=== PATIENT | male | born 1990 | race Two or more races ===

== ENCOUNTER → 2018-03-23 07:01 | Outpatient (CLI) | payer OTHER | END | disposition home or self-care (01) | LOC: D.MRI 07:00 | DX: S83.512A Sprain of anterior cruciate ligament of left knee, initial encounter (principal); X58.XXXA Exposure to other specified factors, initial encounter ==

== ENCOUNTER 2018-04-21 06:16 | Day surgery (SDC) | payer OTHER ==
[~2018-04-21] VITALS: Ht 175.3 cm; Wt 99.8 kg
[2018-04-21 07:47] VITALS: BP 128/89; Ht 175.3 cm; Wt 99.8 kg
[2018-04-21] MEDS ORDERED: TORADOL10 MG PO (12:05)
[2018-04-21] MEDS ORDERED: PERCOCET 7.5/321 TAB PO (12:05)
--- NOTE | 2018-04-21 13:10 | NUR ---
1250-RECD TO ROOM, ALERT. IV PATENT. DENIES PAIN/NAUSEA. IMOBILIZER TO LEFT KNEE, SET AT 0 ON BOTH SIDES. 1300-FULL LIQUIDS SERVED.
--- NOTE | 2018-04-21 14:15 | NUR ---
PT DISCHARGE INSTRUCTIONS REVIWED AT THIS TIME, PT VERBALIZES UNDERSTANDING. PT IV REMOVED AT THIS TIME, INTACT, NO REDNESS OR SWELLING NOTED. PT AWAITING CRUTCHCES FROM [facility].
--- NOTE | 2018-04-21 14:32 | NUR ---
PT REQUESTING TO WRITER CRUTCHES AT [facility]. [facility] CALLED AND CONFIRMED THAT THEY WILL HAVE CRUTCHES READY FOR PT. PT BEING DISCHARGED FROM UNIT AT THIS TIME VIA WC.
--- NOTE | 2018-04-21 15:51 | OP ---
PATIENT NAME: MUSHTAQ GOMEZ MEDICAL RECORD: [id number] :90 LOCATION:[facility] ADMISSION DATE: SURGEON: JAKE ANGULO DO DATE OF OPERATION: 04/21/2018 PROCEDURE PERFORMED: Left ACL reconstruction with allo and autograft and left medial meniscal repair with left knee arthroscopy. PREOPERATIVE DIAGNOSES: Left knee ACL tear complete and medial meniscus tear. POSTOPERATIVE DIAGNOSES: Left knee ACL tear complete and medial meniscus tear. INDICATIONS: Mr. Gomez is a 28-year-old male, who was playing soccer and injured his knee quite some time ago. He has had pain and instability since then, and MRI was done, which demonstrated the above findings, the pre and postoperative diagnoses. He was aware that it is left that he would have continued instability of the knee and catching, popping, or locking of the meniscal symptoms and he wanted something done. He was tired of dealing with the pain and instability. He is aware of the risks and benefits of the procedure including infection, bleeding, damage to nerves and vessels, need for further surgery or revision surgery, and he consented to the procedure. He was also informed of the rehab portion after having the surgery done. SURGEON: Jake Angulo DO DESCRIPTION OF PROCEDURE: The patient received a block by anesthesia in the preoperative area, taken to the operative suite, laid in supine position and given 2 grams of Ancef preoperatively. The left lower extremity was prepped and draped in sterile fashion, and a time-out was performed, everyone was in agreement with the correct side, site, patient, and procedure. The incision then began over the pes anserine to harvest the gracilis and semitendinosus. This harvest was done. I had a very small gracilis, but a good semitendinosus graft. We then decided to augment. The graft available was anterior tib. Once the graft was taken, the scope part began. A lateral incision was made through the lateral portal and the scope was entered into the knee. Beginning in the suprapatellar pouch, no loose body was seen there as well as the medial and lateral gutters. Once the medial gutter was inspected, the knee was flexed down and the medial compartment was entered. An 18-gauge spinal needle was used to verenice the proposed medial portal and 11 blade scalpel was used after 18-gauge needle was withdrawn. A trocar was then put in to open the portal side up. The probe was then brought in. There was a meniscal tear seen, quite severe, from the middle third to the posterior horn of the medial meniscus. The portion of it had been gone barely attached. This was chewed away with a shaver and a biter and then the part that could be salvaged in the posterior horn was repaired with a FasT-Fix and then the camera was switched from the lateral to medial portal and a FasT-Fix was brought in from the lateral portal to fix the more anterior medial part that had been torn on the undersurface. This was repaired with FasT-Fix as well and cinched down and cut. Once that had been performed, the lateral compartment was inspected and the scope was switched to the lateral portal and the probe brought in through the medial portal. The lateral meniscus was in good shape. The ACL tear on the notch then was noted. There were no fibers left whatsoever on the lateral condyle on the internotch. What was left of the stump of the ACL was then cleaned up and the guide was brought in from the lateral portal to do the femoral tunnel, the outside-in technique, with FlipCutter. Once this was performed, it was with the 11 due to OPERATIVE REPORT [id number] MUSHTAQ GOMEZ the graft being a size 10, I made the tunnel 25 mm in length. Then, the nitinol wire was brought through the drill and caught from the inside and taken out through the lateral portal and this was secured with a hemostat through the lateral incision of the knee where the guide was brought in. The tibial side was then prepared. The scope was brought in through the lateral portal and the tibial guide was brought in through the medial portal and this was drilled first with a 7 and then with an 11. Then the nitinol wire was pass through that. During this procedure, the tourniquet had been inflated at the beginning and was up for a total of 115 minutes at 350 mmHg. The leg was esmarched, exsanguinated. Once the tibial tunnel had been drilled and then the graft was passed through, the first initial pass, the button had cinched down. I did put a new button and suture on the femoral side. Once this was brought out through the femur and the button had flipped securing it into place and then the graft was brought up into the femoral tunnel. The graft pull device was then used. Sutures were tied on the end of each graft. Each of the limbs of the graft and the knee was cycled 30 times, held in extension and the graft was entered into the tibia ensuring it was all the way down. Then, the femur side was toggled again to tighten up the graft, any of the laxity that may have been on the graft and probed and camera was put into the knee and the graft was seen to be quite taut and in good position. The knee was ranged and the graft did not impinge. A drawer and a Yamilet's were then done and had good endpoints checking the ACL with very little laxity. The tourniquet was then let down and the excess graft that was hanging out of the tibia was cut with scissors, and the sutures on the button side were cut as well on the femur. Then the open site, where the graft was taken, was irrigated and closed with 2-0 Vicryl in inverted interrupted fashion, 4-0 Monocryl ran on the skin and the other portal sites in the femur incision, where the graft was pulled through, was closed with 4-0 Monocryl in inverted interrupted fashion. Steri-Strips were then placed on the wound, Adaptic. 4 x 4, ABD, Webril, and Sreekanth wrap were then placed on the knee. A ANGELA hose stocking was placed on the knee. The patient was awakened and taken to recovery in stable condition. Blood loss was approximately 50 mL. Complications none. TRANSINT:[id number] Voice Confirmation ID: [id number] DOCUMENT ID: [id number] JAKE ANGULO DO at 1551 CC: [id number] DICTATION DATE: 04/21/18 1217 ELEMENTARY ASSISTANT TEACHER: 04/21/18 1345 [facility] [address] [id number]
== END 2018-04-21 14:34 | disposition home or self-care (01) ==
LOC: D.PAN 06:16 → D.OPS 09:15 → D.PAN 14:34
DX: S83.512A Sprain of anterior cruciate ligament of left knee, initial encounter (principal); S83.242A Other tear of medial meniscus, current injury, left knee, initial encounter